=== PATIENT | male | born 1965 | race Caucasian/White ===

== ENCOUNTER → 2020-08-16 | Outpatient (CLI) | payer OTHER ==
[~2020-08-16] MED LIST: PERCOCET 5/325 T1 EA PO; SYMBICORT 16010.2 GM INH
[2020-08-17 08:13] LABS: RHEUMATOID ARTHRITIS FACTOR <10.0 IU/mL (0.0-13.9)
[2020-08-18 00:09] LABS: CCP ANTIBODIES IGG/IGA 11 units (0-19)
== END ==
LOC: LAB 11:09
PROVIDERS: Nurse Practitioner Family
DX: D89.9 Disorder involving the immune mechanism, unspecified (principal); M25.512 Pain in left shoulder; M25.511 Pain in right shoulder; R76.8 Other specified abnormal immunological findings in serum; M19.90 Unspecified osteoarthritis, unspecified site
CPT/HCPCS: 36415; 73030; 81001; 82550; 82570; 83520; 84156; 85652; 86140; 86200; 86431

== ENCOUNTER 2020-10-18 17:26 | Emergency (ER) | payer OTHER ==
[2020-10-18 20:34] LABS: HEMOGLOBIN 16.9 gm/dl (14.0-17.5); RED BLOOD COUNT 5.2 M/UL (4.20-5.50); WHITE BLOOD COUNT 12.3 K/UL (4.5-11.0)
[2020-10-18 21:02] LABS: BUN/CREATININE RATIO 22 (0-10)
[2020-10-19] MEDS ORDERED: SYMBICORT 16010.2 GM INH (00:33)
[2020-10-19] MEDS ORDERED: PERCOCET 5/325 T1 EA PO (00:33)
== END 2020-10-19 00:47 | disposition home or self-care (01) ==
LOC: ER1 17:26
PROVIDERS: Family Medicine
DX: S22.32XA Fracture of one rib, left side, initial encounter for closed fracture (principal); E11.9 Type 2 diabetes mellitus without complications; I10 Essential (primary) hypertension; F17.290 Nicotine dependence, other tobacco product, uncomplicated; W19.XXXA Unspecified fall, initial encounter
CPT/HCPCS: 80053; 81001; 82550; 82553; 84484; 85025; 87070; 87186; 87205; 94664; 96374; 99284; J2930; Q9967